=== PATIENT | female | born 1955 | race Caucasian/White ===

== ENCOUNTER 2021-01-27 10:56 | Outpatient (REF) | payer OTHER, SELFPAY ==
--- NOTE | ~2021-01-27 | MM_ITS ---
EXAMINATION: MM SCREENING DIGITAL BREAST TOMOSYNTHESIS, BILATERAL CLINICAL INFORMATION: Screening. Asymptomatic. The lifetime risk of breast cancer based on the Tyrer-Cuzick Model is 5%. COMPARISON: Mammography: 08/14/2019, 07/21/2018, 05/20/2017 TECHNIQUE: Digital breast tomosynthesis is performed in both the craniocaudal and mediolateral oblique views along with computer-aided detection (CAD). Synthesized 2D images are generated from the tomosynthesis. FINDINGS: There are scattered areas of fibroglandular density (ACR BI-RADS breast composition Category b). There are no significant masses, abnormal calcifications, or other abnormalities. Parenchymal pattern is similar to prior studies. Skin contours are smooth. MM/MM tomosynthesis screening BI IMPRESSION: No mammographic evidence of malignancy. ASSESSMENT: BI-RADS 1: Negative RECOMMENDATION: Routine annual mammography screening. This patient's information was entered into a reminder system with a target due date for their next mammogram.
== END 2021-01-27 10:57 | disposition home or self-care (01) ==
LOC: HO.MAMMO 10:56
PROVIDERS: Visit Provider Internal Medicine
DX: Z12.31 Encounter for screening mammogram for malignant neoplasm of breast (principal)
CPT/HCPCS: 77063; 77067

== ENCOUNTER 2022-02-06 12:01 | Outpatient (REF) | payer OTHER, SELFPAY ==
--- NOTE | ~2022-02-06 | MM_ITS ---
EXAMINATION: MM SCREENING DIGITAL BREAST TOMOSYNTHESIS, BILATERAL CLINICAL INFORMATION: Screening. Asymptomatic. The lifetime risk of breast cancer based on the Tyrer-Cuzick Model is 3.5%. COMPARISON: Mammography: January 27, 2021 and studies dating back to October 03, 2012 TECHNIQUE: Digital breast tomosynthesis is performed in both the craniocaudal and mediolateral oblique views along with computer-aided detection (CAD). Synthesized 2D images are generated from the tomosynthesis. FINDINGS: The breasts are heterogeneously dense, which may obscure small masses (ACR BI-RADS breast composition Category c). There are no significant masses, abnormal calcifications, or other abnormalities. MM/MM tomosynthesis screening BI IMPRESSION: There are no significant changes from prior study. ASSESSMENT: BI-RADS 1: Negative RECOMMENDATION: Routine annual mammography screening. This patient's information was entered into a reminder system with a target due date for their next mammogram.
== END 2022-02-06 12:02 | disposition home or self-care (01) ==
LOC: HO.MAMMO 12:01
PROVIDERS: PCP Internal Medicine; Visit Provider Internal Medicine
DX: Z12.31 Encounter for screening mammogram for malignant neoplasm of breast (principal)
CPT/HCPCS: 77063; 77067

== ENCOUNTER 2022-03-27 10:50 | Outpatient (REF) | payer OTHER, SELFPAY ==
--- NOTE | ~2022-03-27 | MM_ITS ---
EXAMINATION: BONE DENSITOMETRY CLINICAL INDICATION: Osteoporosis. COMPARISON: Previous BD dated 12/27/2019 and baseline BD dated 07/11/2008. TECHNIQUE: Using a [employer] DXA System (software version: 13.1) manufactured by [employer], dual-energy x-ray absorptiometry was performed of the lumbar spine and left hip. The images are of good technical quality. Summary results are attached. FINDINGS: AP SPINE L1-L4: Current: BMD 1.022 g/cm2, Z-score 0.3, T-score -1.3, osteopenia, 4.4% decrease from previous, 7.0% decrease from baseline (<5% change is not significant). Prior: BMD 1.069 g/cm2. Baseline: BMD 1.099 g/cm2. LEFT FEMUR, NECK: Current: BMD 0.750 g/cm2, Z-score -0.5, T-score -2.1, osteopenia. Prior: BMD 0.820 g/cm2. Baseline: BMD 0.850 g/cm2. LEFT FEMUR, TOTAL: Current: BMD 0.926 g/cm2, Z-score 0.6, T-score -0.6, normal, 5.0% decrease from previous, 9.6% decrease from baseline (<5% change is not significant). Prior: BMD 0.975 g/cm2. Baseline: BMD 1.024 g/cm2. IDENTIFIED RISK FACTORS: Menopause. HISTORY OF FRACTURE: None listed. MEDICATIONS: Calcium supplements or multivitamin, vitamin D. MM/XR DEXA axial skeleton IMPRESSION: 1. DIAGNOSIS: Osteopenia based on the lowest T-score value of -2.1 in the femoral neck applying World Health Organization criteria. 2. 10-YEAR FRACTURE RISK PREDICTION, FRAX: Major osteoporotic fracture (clinical spine, forearm, hip or shoulder) 6.2%. Hip fracture 1.0%. 3. Treatment Recommendations: NOF guidelines recommend consideration for treatment in postmenopausal women and men age 50 and older presenting with the following: -A hip or vertebral (clinical or morphometric) fracture. -T-score less than or equal to -2.5 at the femoral neck or spine after appropriate evaluation to exclude secondary causes. -Low bone mass at the hip or spine and a 10-year fracture probability by FRAX of greater than or equal to 3% for hip fracture or greater than or equal to 20% for major osteoporotic fracture based on the [place] adapted WHO algorithm. 4. Other Recommendations: All treatment decisions require clinical judgment and consideration of individual patient factors, including patient preferences, comorbidities, previous drug use, risk factors not captured in the FRAX model (e.g. frailty, falls, vitamin D deficiency, increased bone turnover, interval significant decline in bone density) and possible under or overestimation of fracture risk by FRAX. Additional medical evaluation for secondary cause of low bone mineral density may be appropriate. FUTURE SCAN RECOMMENDATION: People with diagnosed cases of osteoporosis or at high risk for fracture should have regular bone mineral density tests. For patients eligible for Medicare, routine testing is allowed once every 2 years. The testing frequency can be increased to one year for patients who have rapidly progressing disease, those who are receiving or discontinuing medical therapy to restore bone mass, or have additional risk factors.
== END 2022-03-27 10:51 | disposition home or self-care (01) ==
LOC: HO.MAMMO 10:50
PROVIDERS: PCP Internal Medicine; Visit Provider Advanced Practice Midwife
DX: N95.1 Menopausal and female climacteric states (principal)
CPT/HCPCS: 77080

== ENCOUNTER 2023-03-03 10:38 | Outpatient (REF) | payer OTHER, SELFPAY ==
--- NOTE | ~2023-03-03 | MM_ITS ---
EXAMINATION: MM SCREENING DIGITAL BREAST TOMOSYNTHESIS, BILATERAL CLINICAL INFORMATION: Screening. Asymptomatic. The lifetime risk of breast cancer based on the Tyrer-Cuzick Model is 4%. COMPARISON: Mammography: 02/06/2022, 01/27/2021, 08/14/2019 TECHNIQUE: Digital breast tomosynthesis is performed in both the craniocaudal and mediolateral oblique views along with computer-aided detection (CAD). Synthesized 2D images are generated from the tomosynthesis. FINDINGS: There are scattered areas of fibroglandular density (ACR BI-RADS breast composition Category b). Breast tissue composition borders on heterogeneously dense in the central anterior breasts. There are no significant masses, abnormal calcifications, or other abnormalities. Parenchymal pattern is similar to prior studies. There is no developing density or architectural abnormality. The axilla and skin contours are unremarkable. No significant changes. MM/MM tomosynthesis screening BI IMPRESSION: No mammographic evidence of malignancy. ASSESSMENT: BI-RADS 1: Negative RECOMMENDATION: Routine annual mammography screening. This patient's information was entered into a reminder system with a target due date for their next mammogram.
== END 2023-03-03 10:39 | disposition home or self-care (01) ==
LOC: HO.MAMMO 10:38
PROVIDERS: PCP Internal Medicine; Visit Provider Internal Medicine
DX: Z12.31 Encounter for screening mammogram for malignant neoplasm of breast (principal)
CPT/HCPCS: 77063; 77067

== ENCOUNTER 2023-07-05 19:29 | Outpatient (REF) | payer OTHER, SELFPAY ==
[2023-07-08 04:13] LABS: HPV mRNA E6/E7 rflx Not Detected (Not Detected)
== END 2023-07-05 19:30 | disposition home or self-care (01) ==
LOC: HO.HHCLNP 19:29
PROVIDERS: Visit Provider Advanced Practice Midwife
DX: Z12.4 Encounter for screening for malignant neoplasm of cervix (principal); Z11.51 Encounter for screening for human papillomavirus (HPV)
CPT/HCPCS: 87624; 88142

== ENCOUNTER 2023-09-21 09:02 | Outpatient (REF) | payer OTHER, SELFPAY ==
[2023-09-21 11:14] LABS: MANUAL DIFF FLAG NO
[2023-09-21 11:22] LABS: Basophils Percent Auto 0.1 % (0-2); Eosinophils Absolute Auto 0.1 X10*3/uL (0.0-0.4); Eosinophils Percent Auto 1.5 % (0-4); Hematocrit 37.8 % (37.0-47.0); Hemoglobin 12.1 g/dl (12.0-16.0); Imm Gran Abs Auto 0.02 X10*3/uL (0.00-0.03); Imm Gran Pct Auto 0.3 % (0.0-0.4); Lymphocytes Absolute Auto 1.8 X10*3/uL (1.2-4.9); Lymphocytes Percent Auto 24.5 % (20-40); Mean Corpuscular Hemoglobin 27.3 pg (27.0-33.0); Mean Corpuscular Volume 85.3 fL (80.0-98.0); Mean Platelet Volume 9.4 fL (9.4-12.3); Monocytes Absolute Auto 0.7 X10*3/uL (0.1-1.2); Monocytes Percent Auto 9.1 % (2-11); Neutrophils Absolute Auto 4.7 x10*3/uL (2.0-8.3); Neutrophils Percent Auto 64.5 % (45-73); Platelet Count 244 X10*3/uL (160-400); Red Blood Count 4.43 X10*6/uL (4.20-5.50); Red Cell Distribution Width 13.8 % (11.0-16.0); White Blood Count 7.2 X10*3/uL (4.8-10.8)
[2023-09-21 11:33] LABS: Estimated Average Glucose 108 mg/dL; Hemoglobin A1c % 5.4 % (<6.0)
[2023-09-21 11:54] LABS: Anion Gap 13 (12-20); Blood Urea Nitrogen 9 mg/dL (9-16); Calcium 10.4 mg/dL (8.4-10.2); Carbon Dioxide 30 mmol/L (22-29); Chloride 103 mmol/L (96-108); Cholesterol 198 mg/dL (<200); Estimated Glomerular Filt Rate > 60; Glucose Random 102 mg/dL (60-115); HDL Cholesterol 49 mg/dL (>40); LDL Cholesterol Calculated 117 mg/dL (<100); Potassium 3.6 mmol/L (3.3-5.1); Sodium 142 mmol/L (135-145); TSH reflex Free T4 1.22 uIU/mL (0.32-4.0); Triglycerides 163 mg/dL (<150)
== END 2023-09-21 09:03 | disposition home or self-care (01) ==
LOC: HO.HHCL 09:02
PROVIDERS: Visit Provider Internal Medicine
DX: E55.9 Vitamin D deficiency, unspecified (principal); I10 Essential (primary) hypertension; E78.5 Hyperlipidemia, unspecified; D63.8 Anemia in other chronic diseases classified elsewhere; M25.50 Pain in unspecified joint
CPT/HCPCS: 36415; 80048; 80061; 82306; 83036; 84443; 85025

== ENCOUNTER 2024-03-08 10:12 | Outpatient (REF) | payer OTHER, SELFPAY | END 2024-03-08 10:13 | disposition home or self-care (01) | LOC: HO.MAMMO 10:12 | PROVIDERS: PCP Internal Medicine; Visit Provider Internal Medicine | DX: Z12.31 Encounter for screening mammogram for malignant neoplasm of breast (principal) | CPT/HCPCS: 77063; 77067 ==

== ENCOUNTER → 2024-03-08 10:30 | Outpatient (BNV) | payer OTHER, SELFPAY | PROVIDERS: PCP Internal Medicine; Visit Provider Radiology Diagnostic Radiology | DX: Z12.31 Encounter for screening mammogram for malignant neoplasm of breast (principal) | CPT/HCPCS: 77063; 77067 ==

== ENCOUNTER 2024-07-27 11:16 | Outpatient (REF) | payer OTHER, SELFPAY ==
--- NOTE | ~2024-07-27 | MM_ITS ---
EXAMINATION: BONE DENSITOMETRY CLINICAL INDICATION: Menopause. COMPARISON: Previous BD dated 03/27/2022 and baseline BD dated 07/11/2008. TECHNIQUE: Using a [employer] DXA System (software version: 13.1) manufactured by [employer], dual-energy x-ray absorptiometry was performed of the lumbar spine and left hip. The images are of good technical quality. Summary results are attached. FINDINGS: LEFT FEMUR, NECK: Current: BMD 0.778 g/cm2, Z-score -0.2, T-score -1.9, osteopenia. Prior: BMD 0.750 g/cm2. Baseline: BMD 0.850 g/cm2. LEFT FEMUR, TOTAL: Current: BMD 0.945 g/cm2, Z-score 0.9, T-score -0.5, normal, 2.1% increase from previous, 7.7% decrease from baseline (<5% change is not significant). Prior: BMD 0.926 g/cm2. Baseline: BMD 1.024 g/cm2. AP SPINE L1-L4: Current: BMD 1.004 g/cm2, Z-score 0.2, T-score -1.5, osteopenia, 1.8% decrease from previous, 8.6% decrease from baseline (<5% change is not significant). Prior: BMD 1.022 g/cm2. Baseline: BMD 1.099 g/cm2. IDENTIFIED RISK FACTORS: Menopause, thiazide. HISTORY OF FRACTURE: None listed. MEDICATIONS: Vitamin D. MM/XR DEXA axial skeleton IMPRESSION: 1. DIAGNOSIS: Osteopenia based on the lowest T-score value of -1.9 in the femoral neck applying World Health Organization criteria. 2. 10-YEAR FRACTURE RISK PREDICTION, FRAX: Major osteoporotic fracture (clinical spine, forearm, hip or shoulder) 6.0%. Hip fracture 1.7%. 3. Treatment Recommendations: NOF guidelines recommend consideration for treatment in postmenopausal women and men age 50 and older presenting with the following: -A hip or vertebral (clinical or morphometric) fracture. -T-score less than or equal to -2.5 at the femoral neck or spine after appropriate evaluation to exclude secondary causes. -Low bone mass at the hip or spine and a 10-year fracture probability by FRAX of greater than or equal to 3% for hip fracture or greater than or equal to 20% for major osteoporotic fracture based on the [place] adapted WHO algorithm. 4. Other Recommendations: All treatment decisions require clinical judgment and consideration of individual patient factors, including patient preferences, comorbidities, previous drug use, risk factors not captured in the FRAX model (e.g. frailty, falls, vitamin D deficiency, increased bone turnover, interval significant decline in bone density) and possible under or overestimation of fracture risk by FRAX. Additional medical evaluation for secondary cause of low bone mineral density may be appropriate. FUTURE SCAN RECOMMENDATION: People with diagnosed cases of osteoporosis or at high risk for fracture should have regular bone mineral density tests. For patients eligible for Medicare, routine testing is allowed once every 2 years. The testing frequency can be increased to one year for patients who have rapidly progressing disease, those who are receiving or discontinuing medical therapy to restore bone mass, or have additional risk factors. Electronically signed by: Yuniel Medel MD 08/02/2024 11:55 AM EDT RP
== END 2024-07-27 11:17 | disposition home or self-care (01) ==
LOC: HO.MAMMO 11:16
PROVIDERS: PCP Internal Medicine; Visit Provider Advanced Practice Midwife
DX: Z13.820 Encounter for screening for osteoporosis (principal); Z78.0 Asymptomatic menopausal state
CPT/HCPCS: 77080

== ENCOUNTER 2025-01-09 09:17 | Outpatient (REF) | payer OTHER, SELFPAY ==
[2025-01-09 11:02] LABS: MANUAL DIFF FLAG NO
[2025-01-09 11:17] LABS: Basophils Percent Auto 0.3 % (0-2); Eosinophils Absolute Auto 0.1 X10*3/uL (0.0-0.4); Hematocrit 39.4 % (37.0-47.0); Hemoglobin 12.8 g/dl (12.0-16.0); Imm Gran Abs Auto 0.02 X10*3/uL (0.00-0.03); Imm Gran Pct Auto 0.3 % (0.0-0.4); Lymphocytes Absolute Auto 1.9 X10*3/uL (1.2-4.9); Mean Corpuscular HGB Conc 32.5 g/dl (31.0-35.0); Mean Corpuscular Hemoglobin 28.1 pg (27.0-33.0); Mean Corpuscular Volume 86.6 fL (80.0-98.0); Mean Platelet Volume 9.6 fL (9.4-12.3); Monocytes Absolute Auto 0.6 X10*3/uL (0.1-1.2); Neutrophils Absolute Auto 4.6 x10*3/uL (2.0-8.3); Neutrophils Percent Auto 64.4 % (45-73); Platelet Count 241 X10*3/uL (160-400); Red Blood Count 4.55 X10*6/uL (4.20-5.50); Red Cell Distribution Width 13.2 % (11.0-16.0); White Blood Count 7.1 X10*3/uL (4.8-10.8)
[2025-01-09 11:49] LABS: Estimated Average Glucose 120 mg/dL; Hemoglobin A1C 150.9413 umol/L; Hemoglobin A1c % 5.8 % (<6.0)
[2025-01-09 12:15] LABS: Alanine Aminotransferase 21 U/L (0-31); Albumin Level 4.7 g/dL (3.5-5.0); Alkaline Phosphatase 101 U/L (39-117); Anion Gap 18 (12-20); Aspartate Amino Transferase 30 U/L (5-31); Bilirubin Total 0.5 mg/dL (0.0-1.0); Blood Urea Nitrogen 13 mg/dL (9-16); Carbon Dioxide 27 mmol/L (22-29); Chloride 103 mmol/L (96-108); Cholesterol 132 mg/dL (<200); Estimated Glomerular Filt Rate > 60; Glucose Random 102 mg/dL (60-115); HDL Cholesterol 56 mg/dL (>40); LDL Cholesterol Calculated 54 mg/dL (<100); Potassium 3.5 mmol/L (3.3-5.1); Sodium 144 mmol/L (135-145); TSH reflex Free T4 1.44 uIU/mL (0.32-4.0); Total Protein 8.3 g/dL (6.5-8.0); Triglycerides 113 mg/dL (<150)
[2025-01-09 13:39] LABS: Reflex LDLD? No
== END 2025-01-09 09:18 | disposition home or self-care (01) ==
LOC: HO.HHCL 09:17
PROVIDERS: Visit Provider Internal Medicine
DX: I10 Essential (primary) hypertension (principal); Z13.1 Encounter for screening for diabetes mellitus
CPT/HCPCS: 36415; 80053; 80061; 83036; 84443; 85025

== ENCOUNTER 2025-03-14 10:20 | Outpatient (REF) | payer OTHER, SELFPAY ==
--- NOTE | ~2025-03-14 | MM_ITS ---
EXAMINATION: MM SCREENING DIGITAL BREAST TOMOSYNTHESIS, BILATERAL CLINICAL INFORMATION: Screening. Asymptomatic. New left lesion marked with mole marker noticed a few days ago in the shower. COMPARISON: Mammography: Comparison is made with available priors TECHNIQUE: Digital breast mammography with tomosynthesis is performed in both the craniocaudal and mediolateral oblique views along with computer-aided detection (CAD). FINDINGS: The breasts are heterogeneously dense, which may obscure small masses (ACR BI-RADS breast composition Category c). Left: Mole marker in the lower inner left breast from a new lesion the patient noticed. No suspicious masses calcifications or other abnormal findings. Right: There are no significant masses, abnormal calcifications, or other abnormalities. MM/MM tomosynthesis screening BI IMPRESSION: Additional imaging is recommended ASSESSMENT: BI-RADS BI-RADS 0 - Incomplete: Needs additional Imaging. RECOMMENDATION: 1. Additional views of the left breast ultrasound. 2. Radiology department staff will contact the patient for additional imaging. Additional Imaging required This examination should not preclude the clinical evaluation of a suspicious palpable abnormality. This patient's information was entered into a reminder system with a target due date for their next mammogram. Electronically signed by: Tash Magallon DO 03/16/2025 09:19 AM EDT
--- OUTSIDE RECORDS SUMMARY | 2025-03-14 12:07 | XMS_ITS | Clinical Summary ---
Author Organization [employer] Address [address] [facility] [address] [place] [address] Care Team Providers Care Grave Digger Name Role Phone Viola Jackson MD Primary Care Provide r Allergies No known active allergies Medications carbamide peroxide (Debrox) 6.5 % otic solution 5 drops every 12 (twelve) hours. instill 5 drop by otic route 2 times every day into affected ear(s) 01/21/20 22 Active Diclofenac Sodium 1 % gelIndications:L umbar paraspinal muscle spasm APPLY 1 INCH TOPICALLY IF NEEDED IN THE MORNING AND AT BEDTIME (PAIN). 100 g 12/24/19 23 Active cyclobenzaprine (Flexeril) 10 MG tabletIndication s:Lumbar paraspinal muscle spasm Take 1 tablet (10 mg) by mouth if needed in the morning and at bedtime for muscle spasms for up to 20 days. 30 tablet 12/03/19 24 Active cholecalciferol VITAMIN D (Vitamin D-3) 50 MCG (1999 UT) capsule TAKE 1 CAPSULE BY MOUTH EVERY DAY 90 capsule 1 07/17/20 24 Active LORazepam (Ativan) 0.5 MG tabletIndication s:Anxiety Take 1 tablet (0.5 mg) by mouth every 6 (six) hours if needed for anxiety (take before stressfull situation) for up to 4 doses. 4 tablet 08/22/20 24 Active metoprolol tartrate (Lopressor) 50 MG tabletIndication s:Primary hypertension TAKE 1 TABLET BY MOUTH TWICE A DAY 180 tablet 1 10/25/20 24 Active ezetimibe (Zetia) 10 MG tabletIndication s:Essential hypertension TAKE 1 TABLET BY MOUTH EVERY MORNING 90 tablet 3 11/20/20 24 Active amLODIPine (Norvasc) 5 MG tabletIndication s:Essential hypertension TAKE 1 TABLET BY MOUTH EVERY MORNING 90 tablet 3 11/20/20 24 Active hydroCHLOROthiaz stella (HYDRODiuril) 25 MG tabletIndication s:Essential hypertension TAKE 1 TABLET BY MOUTH EVERY DAY 90 tablet 3 11/20/20 24 Active atorvastatin (Lipitor) 80 MG tablet TAKE 1 TABLET BY MOUTH EVERY MORNING 90 tablet 3 11/20/20 24 Active cholecalciferol (Vitamin D-3) 25 MCG (1000 UT) tabletIndication s:Vitamin D deficiency Take 1 tablet (25 mcg) by mouth Once per day. 60 tablet 2 01/18/20 25 Active hydrocortisone (Anusol-HC) 2.5 % rectal creamIndications :Other hemorrhoids Insert into the rectum 2 times daily. 28 g 1 01/18/20 25 Active citalopram (CeleXA) 10 MG tabletIndication s:Depression with anxiety TAKE 1 TABLET BY MOUTH EVERY MORNING 90 tablet 3 02/20/20 25 Active lisinopril 40 MG tablet TAKE 1 TABLET BY MOUTH EVERY DAY 90 tablet 3 02/20/20 25 Active aspirin (Aspirin Low Dose) 81 MG EC tablet TAKE 1 TABLET BY MOUTH EVERY MORNING 90 tablet 3 02/20/20 25 Active citalopram (CeleXA) 10 MG tabletIndication s:Depression with anxiety TAKE 1 TABLET BY MOUTH EVERY MORNING 90 tablet 3 02/28/20 24 025 Discontinued aspirin (Aspirin Low Dose) 81 MG EC tablet TAKE 1 TABLET BY MOUTH EVERY MORNING 90 tablet 3 02/28/20 24 025 Discontinued lisinopril 40 MG tablet TAKE 1 TABLET BY MOUTH EVERY DAY 90 tablet 3 05/15/20 24 025 Discontinued Active Problems Problem Noted Date Diagnosed Date Class 1 obesity due to exces s calories with serious comorbidity and body mass index (BMI) of 31.0 to 31.9 in adult 01/18/2025 Assessment & Plan (01/18/2025 4:29 PM EST): Extensive counseling about diet and exercise done today Patient was referred to baggage porter head Roger 01/18/2025 Assessment & Plan (01/18/2025 4:29 PM EST): Patient referred to dermatology Other hemorrhoids 01/18/2025 Assessment & Plan (01/18/2025 4:29 PM EST): Hydrocortisone cream prescribed as needed Colon cancer screening 12/03/2023 Mixed stress and urge urinary incontinence 03/26 Depression with anxiety 03/26/2023 Assessment & Plan (01/18/2025 4:29 PM EST): Counseling done Continue with citalopram 10 mg daily Assessment & Plan (12/31/2023 2:08 PM EST): Continue with therapist C/w citalopram 10mg daily Assessment & Plan (12/08/2023 9:46 AM EST): Stable c/w citalopram Assessment & Plan (03/31/2023 4:07 PM EDT): Continue with therapist medication refilled today Anxiety 10/27/2022 Excessive cerumen in ear canal 10/27/2022 Major depressive disorder 10/27/2022 Assessment & Plan (06/30/2024 12:15 PM EDT): C/w current medications, she declines for now therapist Multiple joint pain 10/27/2022 Tinnitus 10/27/2022 Vitamin D deficiency 10/27/2022 Lumbar paraspinal muscle spasm 10/27/2022 Assessment & Plan (12/08/2023 9:46 AM EST): Apply heat on affected area Assessment & Plan (10/27/2022 6:35 PM EST): Recommended to apply warm compresses to affected area Use tylenol + Cyclobenzaprine bid x 5d then prn. Use diclofenac gel bid x 5d Recommended to come for acupuncture clinic, info given to patient Lumbar spine exercises info provided to patient. Reconsult prn if sxs do not improve within 2w Coronary atherosclerosis 08/23/2018 Anemia of chronic disease 10/18/2017 Essential hypertension 10/18/2017 Assessment & Plan (01/18/2025 4:28 PM EST): Blood pressure seems to be under control I advised low-sodium diet and continue with same medication regimen Assessment & Plan (06/30/2024 12:14 PM EDT): Maintenance: BMP: ordered today Lipid Panel: ordered ASCVD Risk: Calculate pending updated labs - Aerobic exercise to reduce BP. Initial goal of 30 min walk 3-5x/week. Increase as tolerated. - low-sodium diet (goal: <2g/day) and heart healthy diet such as DASH to reduce BP and prevent ASCVD. - Home BP monitoring 1-2 x day with goal of <140/90. - Seek immediate medical attention for chest pain, palpitations, SOB, syncope, or sudden changes in mental status. - Do not change or discontinue current prescriptions without first consulting health care provider Assessment & Plan (12/31/2023 2:08 PM EST): Controlled c/w same interventions Assessment & Plan (12/08/2023 9:46 AM EST): Maintenance: BMP: up to date Lipid Panel: up date ASCVD Risk: on atorvastatin 80mg I added today zetia - Aerobic exercise to reduce BP. Initial goal of 30 min walk 3-5x/week. Increase as tolerated. - low-sodium diet (goal: <2g/day) and heart healthy diet such as DASH to reduce BP and prevent ASCVD. - Home BP monitoring 1-2 x day with goal of <140/90. - Seek immediate medical attention for chest pain, palpitations, SOB, syncope, or sudden changes in mental status. - Do not change or discontinue current prescriptions without first consulting health care provider Assessment & Plan (03/31/2023 4:07 PM EDT): Maintenance: BMP: ordered today Lipid Panel: ordered today ASCVD Risk: already on high intensity statin - Aerobic exercise to reduce BP. Initial goal of 30 min walk 3-5x/week. Increase as tolerated. - low-sodium diet (goal: <2g/day) and heart healthy diet such as DASH to reduce BP and prevent ASCVD. - Home BP monitoring 1-2 x day with goal of <140/90. - Seek immediate medical attention for chest pain, palpitations, SOB, syncope, or sudden changes in mental status. - Do not change or discontinue current prescriptions without first consulting health care provider Assessment & Plan (10/27/2022 6:36 PM EST): Uncontrolled today, likely related to acute pain. Treat pain, check BP at home three times per week and fu w RN if BP remains >150/90 after 2w. Continue same meds. Female stress incontinence 10/18/2017 Hyperlipidemia 10/18/2017 Legal blindness 10/18/2017 Osteopenia determined by x-ray 10/18/2017 Status post non-ST elevation myocardial infarcti on (NSTEMI) 10/18/2017 Stented coronary artery 10/18/2017 Encounters Date Type Department Care Team Description 02/20/2025 11:00 AM EDT Nutrition [facility] [address] [place] [address] Class 1 obesity due to excess calories with serious comorbidity and body mass index (BMI) of 31.0 to 31.9 in adult 02/20/2025 Travel 02/18/2025 Refill [facility] [address] [place] [address] Viola Jackson MD Depression with anxiety 01/18/2025 11:00 AM EST Office Visit [facility] [address] [place] [address] Viola Jackson MD Class 1 obesity due to excess calories with serious comorbidity and body mass index (BMI) of 31.0 to 31.9 in adult (Primary Dx); Depression with anxiety; Essential hypertension; Nevus; Vitamin D deficiency; Multiple joint pain; Other hemorrhoids 01/18/2025 Travel 01/18/2025 Telephone [facility] [address] [place], [place] [phone] Viola Jackson MD Cologuabreonna 01/17/2025 Telephone [facility] [address] [place] [phone] Viola Jackson MD from Last 3 Months Immunizations Name Administration Dates Next Due Influenza High-dose Quadriva lent Preservative Free 09/08/2022 Influenza Quadrivalent Adjuvanted 10/15/2023, Influenza injectable quadriv alent IIV4 with preservative 09/01/2019,08/23/2018,09/23/2015 Influenza injectable quadriv alent preservative free 10/09/2020,09/07/2017,08/25/2016 Influenza, IIV3, injectable 09/21/2014, 1 Influenza, Split (incl. aden fied surface antigen) 08/15/2013,09/23/2012 Pneumococcal Conjugate PCV 13 01/20/2022 Pneumococcal Conjugate PCV 20 12/03/2023 TD (adult), 2 Lf tetanus tox oid, preservative free, adsorbed 03/31/2007 Tdap 05/12/2017 Zoster, live 05/12/2017 Family History Medical History Relation Name Comments Other Son murdered 05/2024 Relation Name Status Comments Son Social History Tobacco Use Types Packs/Day Years Used Date Smoking Tobacco: Never Passive Smoke Exposure: Never Smokeless Tobacco: Never Tobacco Cessation:Counseling Given: Not Answered Alcohol Use Standard Drinks/Week Comments Never 0 (1 standard drink = 0.6 oz pur e alcohol) Alcohol Answer Date Recorded Frequency of Alcohol Consumption Not on file 06/30/2024 Average Number of Drinks Not on file 024 Frequency of Binge Drinking Not on file 07/2024 Score 0 06/30/2024 Depression Answer Date Recorded Patient Health Questionnaire-9 Score 0 06/30/2024 Patient Health Questionnaire-9 Score 0 06/30/2024 Last PHQ-9: Questionnaire Data Not on file 0 06/30/2024 Housing Stability Answer Date Recorded What is your housing situation today? I have mel lanier 06/20/[address] you li ve. Do you have problems with any of the following? Pests such as bugs, ants, or mice;Mold 06/20/2024 Food Insecurity Answer Date Recorded Within the past 12 months, y ou worried that your food would run out before you got money to buy more: Never True 06/20/2024 Within the past 12 months,th e food you bought just didn't last and you didn't have enough money to get more: Never True Transportation Answer Date Recorded In the past 12 months, has l ack of transportation kept you from medical appts, meetings, work or from getting things needed for daily living? No 06/20/2024 Utilities Answer Date Recorded In the past 12 months, has t he electric, gas, oil or water company threatened to shut off services in your home? No 06/20/2024 Depression Answer Date Recorded Patient Health Questionnaire-2 Score 0 06/30/2024 Internet Access Answer Date Recorded Internet Access Q1 No 07/24/2024 Internet Access Q2 I do not want or need it 12/2023 Comments No Sex and Gender Information Value Date Recorded Sex Assigned at Female 09/21/2022 10:14 AM EDT Legal Sex Female 10:14 AM EDT Gender Identity Female 09/21/2022 10:14 AM EDT Sexual Orientation Straight 09/21/2022 10 :14 AM EDT Last Filed Vital Signs Vital Sign Reading Time Taken Comments Blood Pressure 121/73 01/18/2025 11:06 AM EST Pulse 64 01/18/2025 11:06 AM EST Temperature 35.7 ??C (96.3 ??F) 01/18/2025 1 1:06 AM EST Respiratory Rate 17 01/18/2025 11:0 6 AM EST Oxygen Saturation 98% 07/05/2024 11: 24 AM EDT Inhaled Oxygen Concentration - - Weight 66.6 kg (146 lb 12.8 oz) 025 11:54 AM EDT Height 147.3 cm (4' 10 ) 02/22/2025 11: 54 AM EDT Body Mass Index 30.68 02/22/2025 11:54 AM EDT Plan of Treatment Upcoming Encounters Date Type Department Care Team (Late st Contact Info) Description 04/18/2025 11:15 AM EDT Office Visit [facility] [address] [place] [address] Viola Jackson MD [address] [place] [address] Health Maintenance Due Date Last Done Comments CT Colonography 1955 Colonoscopy 1955 FIT 1955 FOBT 1955 Sigmoidoscopy 1955 Hepatitis C Screening 1973 RSV Patients and Patients Aged 60 years or older (1 - Risk 60-74 years 1-dose series) 2015 COVID-19 Vaccine ( season) 2024 10/15/2023, 11/07/2022, 11/18/2021, Additional history exists Zoster Vaccines (3 of 3) 12/20/2024 10/25/2024, 04/23 Mammogram 03/08/2025 03/08/2024, 02/20, 03/03/2023, Additional history exists SDOH Screening 06/20/2025 06/20/2024 Alcohol/Substance Use Screening 06/30/2025 06/30/2024 Depression Screening 06/30/2025 06/30/2024, 06/30/20 Colorectal Cancer Screening 09/21/2025 FIT DNA/Cologuard 09/21/2025 09/21/2022 Diabetes: Hemoglobin A1C 01/09/2026 025, 09/21/2023, 04/21/2022, Additional history exists Tobacco Screening 01/18/2026 01/18/2025 DTaP/Tdap/Td Vaccines (2 - Td or Tdap) 05/12/2027 05/12/2017, 03/31/2007 HPV/Cotest 07/05/2028 07/05/2023, 12/21/2019 Pap Smear 07/05/2028 07/05/2023, 12/21/2019 Lipid Panel 01/09/2030 01/09/2025, 08/24, 04/21/2022, Additional history exists Pneumococcal Vaccine: 50+ Years Completed 12/03/2023, 01/20/2022 Influenza Vaccine Completed 10/25/2024, , 09/08/2022, Additional history exists HIB Vaccines Aged Out No longer eligi ble based on patient's age to complete this topic HPV Vaccines Aged Out No longer eligi ble based on patient's age to complete this topic Hepatitis A Vaccines Aged Out No long er eligible based on patient's age to complete this topic Hepatitis B Vaccines Aged Out No long er eligible based on patient's age to complete this topic IPV Vaccines Aged Out No longer eligi ble based on patient's age to complete this topic Meningococcal Vaccine Aged Out No torin ángela eligible based on patient's age to complete this topic RSV under 20 months Aged Out No longe r eligible based on patient's age to complete this topic Rotavirus Vaccines Aged Out No longer eligible based on patient's age to complete this topic Procedures Procedure Name Priority Date/Time Associated Diagnosis Comments HEMOGLOBIN A1C Routine 01/09/2025 9:20 AM EST Essential hypertension TSH W/REFLEX TO FT4 Routine 01/09/2025 9 :20 AM EST Essential hypertension LIPID PANEL WITH REFLEX TO DIRECT LDL Routine 01/09/2025 9:20 AM EST Essential hypertension COMPREHENSIVE METABOLIC PANEL Routine 01/09/2025 9:20 AM EST Essential hypertension CBC WITH AUTO DIFFERENTIAL Routine 01/09/2025 9:20 AM EST Essential hypertension BI MAMMOGRAM SCREENING TOMOSYNTHESIS BILATERAL Routine 03/08/2024 10:30 AM EDT HPV MRNA E6/E7 REFLEX TO HPV 16, 18/45 Routine 07/05/2023 12:00 AM EDT PAP SMEAR Routine 07/05/2023 from Last 3 Months or Most Recently Relevant to Health Maintenance Results * TSH with Reflex to Free T4 (01/09/2025 9:20 AM EST) TSH reflex Free T4 1.44 0.32 - 4.0 uIU/mL [facility] Blood 01/09/2025 9:20 AM EST 01/09/2025 11:00 AM EST us Viola So MD LAB BLOOD ORDERABLES Final Result [facility] [address] [place] [phone] * Lipid Panel with Reflex to Direct LDL (01/09/2025 9:20 AM EST) Triglycerides 113 <150 mg/dL [facility] Comment:Desirable Triglyceri de: less than 150 mg/dLBorderline High Triglyceride 150-199 mg/dLHigh Triglyceride: 200-499 mg/dLVery High Triglyceride: greater than or equal to 5OO mg/dL Cholesterol 132 <200 mg/dL [facility] Comment:Desirable Cholestero l: less than 200 mg/dLBorderline High Cholesterol: 200-239 mg/dLHigh Cholesterol: greater than 239 mg/dL LDL Cholesterol Calculated 54 <100 mg/dL [facility] Comment:Desirable LDL: less than 100 mg/dLNear Optimal/Above Optimal LDL: 110- 129 mg/dLBorderline High LDL: 130-159 mg/dLHigh LDL: 160-189 mg/dLVery High LDL: greater than or equal to 190 mg/dL HDL Cholesterol 56 >40 mg/dL [facility] Comment:Desirable HDL: great er than 40 mg/dL Note: This HDL assay may give artificially low results in patients with liver disease. Blood 01/09/2025 9:20 AM EST 01/09/2025 11:00 AM EST us Viola So MD LAB BLOOD ORDERABLES Final Result [facility] [address] [place] [address] [phone] * CBC auto differential (01/09/2025 9:20 AM EST) White Blood Count 7.1 4.8 - 10.8 X10*3/uL [facility] Red Blood Count 4.55 4.20 - 5.50 X10*6/uL [facility] Hemoglobin 12.8 12.0 - 16.0 g/dl [facility] Hematocrit 39.4 37.0 - 47.0 % [facility] Mean Corpuscular Volume 86.6 80.0 - 98.0 fL [facility] Mean Corpuscular Hemoglobin 28.1 27.0 - 33.0 pg [facility] Mean Corpuscular HGB Conc 32.5 31.0 - 35.0 g/dl [facility] Red Cell Distribution Width 13.2 11.0 - 16.0 % [facility] Platelet Count 241 160 - 400 X10*3/uL [facility] Mean Platelet Volume 9.6 9.4 - 12.3 fL [facility] Neutrophils Percent Auto 64.4 45 - 73 % [facility] Imm Gran Pct Auto 0.3 0.0 - 0.4 % [facility] Lymphocytes Percent Auto 26.0 20 - 40 % [facility] Monocytes Percent Auto 8.0 2 - 11 % [facility] Eosinophils Percent Auto 1.0 0 - 4 % [facility] Basophils Percent Auto 0.3 0 - 2 % [facility] NRBC Pct Auto 0.0 0.0 - 0.2 /100WBC [facility] Neutrophils Absolute Auto 4.6 2.0 - 8.3 x10*3/uL [facility] Imm Gran Abs Auto 0.02 0.00 - 0.03 X10*3/uL [facility] Lymphocytes Absolute Auto 1.9 1.2 - 4.9 X10*3/uL [facility] Monocytes Absolute Auto 0.6 0.1 - 1.2 X10*3/uL [facility] Eosinophils Absolute Auto 0.1 0.0 - 0.4 X10*3/uL [facility] Basophils Absolute Auto 0.0 0.0 - 0.2 X10*3/uL [facility] NRBC Abs Auto 0.000 0.0 - 0.012 X10*3/uL [facility] Blood Venous blood specimen / Unknown 01/09/2025 9:20 AM EST 01/09/2025 11:00 AM EST us Viola So MD LAB BLOOD ORDERABLES Final Result [facility] [address] [place] [phone] * Hemoglobin A1c (01/09/2025 9:20 AM EST) Hemoglobin A1c 5.8 <6.0 % [facility] Comment:Hemoglobin A1C Refer ence Range Adults: 4.8 - 6.0 % Non diabetic: < 6.0 % Goal: < 7.0 %Additional Action Suggested: > 8.0 %Note: Hemoglobin A1c results are invalid for patients with abnormal amounts of HbF. Blood transfusions may impact the HbA1c concentration in the patient sample. Estimated Average Glucose 120 mg/dL [facility] Comment:eAG = Estimated ave rage glucose which is %A1C expressed asaverage glucose, using the formula of the V9F-WaokuduWrfztpi Glucose study (ADAG), Diabetes Care, Vol.31,#8,Jun. 2007 Blood Venous blood specimen / Unknown 01/09/2025 9:20 AM EST 01/09/2025 11:00 AM EST us Viola So MD LAB BLOOD ORDERABLES Final Result [facility] [address] [place] [phone] [phone] * (ABNORMAL) Comprehensive Metabolic Panel (01/09/2025 9:20 AM EST) Sodium 144 135 - 145 mmol/L [facility] Potassium 3.5 3.3 - 5.1 mmol/L [facility] Chloride 103 96 - 108 mmol/L [facility] Carbon Dioxide 27 22 - 29 mmol/L [facility] Anion Gap 18 12 - 20 [facility] Urea Nitrogen (BUN) 13 9 - 16 mg/dL [facility] Creatinine, Serum 0.70 0.5 - 1.4 mg/dL [facility] Estimated Glomerular Filt Rate >60 [facility] Comment:Chronic Kidney Disea se: Estimated GFR < 60 mL/min/1.05a6Gicuud Kidney Disease: Estimated GFR < 15 mL/min/1.73m2 Glucose 102 60 - 115 mg/dL [facility] Calcium 10.0 8.4 - 10.2 mg/dL [facility] Bilirubin, Total 0.5 0.0 - 1.0 mg/dL [facility] Aspartate Amino Transferase 30 5 - 31 U/L [facility] Alanine Aminotransferase 21 0 - 31 U/L [facility] Total Protein 8.3(H) 6.5 - 8.0 g/dL [facility] Albumin Level 4.7 3.5 - 5.0 g/dL [facility] Alkaline Phosphatase 101 39 - 117 U/L [facility] Blood Venous blood specimen / Unknown 01/09/2025 9:20 AM EST 01/09/2025 11:00 AM EST Viola So MD LAB BLOOD ORDERABLES Final Result [facility] [address] [place] [phone] * BI Mammogram Screening Tomosynthesis Bilateral (03/08/2024 10:30 AM EDT) Anatomical Region Laterality Modality Breast Bilateral Mammography 03/08/2024 10:3 0 AM EDT Narrative 04/03/2024 9:12 AM EDT ? [facility] ? [address] ?[place] [address] ? Mammography Report ? Signed ? Patient: Lambert,Alice ?MR#: [id number] ?? 3 ? : 1955 ?Acct:[id number] ? Age/Sex: 68 / F ?ADM Date: 04/17/24 ? Loc: HO.MAMMO ? Attending Dr: Viola So MD ? Ordering Physician: Viola Jackson MD ?Results: ?? 1Negative ? Date of Service: 03/08/24 ?Follow Up: 1 Year From Orig ?? inal Mammogram ? Procedure(s): MM tomosynthesis screening BI ?? Accession Number(s): [id number] ? cc: Viola Jackson MD ? EXAMINATION: ?? MM SCREENING DIGITAL BREAST TOMOSYNTHESIS, BILATERAL ? CLINICAL INFORMATION: ? Screening. Asymptomatic. ? COMPARISON: ?? Mammography: This study is compared with prior exams dating back to ?? 2018. ? TECHNIQUE: ?? Digital breast tomosynthesis is performed in both the craniocaudal and ?? mediolateral oblique views along with computer-aided detection (CAD). ?? Synthesized 2D images are generated from the tomosynthesis. ? FINDINGS: ?? There are scattered areas of fibroglandular density (ACR BI-RADS breast ?? composition Category b). ? There are no significant masses, abnormal calcifications, or other ?? abnormalities. ? MM/MM tomosynthesis screening BI ?? IMPRESSION: ?? No mammographic evidence of malignancy. ? ASSESSMENT: ? BI-RADS BI-RADS 1 - Negative ? RECOMMENDATION: ?? Routine annual mammography screening. ? 1 year F/U ? This examination should not preclude the clinical evaluation of a ?? suspicious palpable abnormality. ? This patient's information was entered into a reminder system with a ?? target due date for their next mammogram. ? Dictated By: ?Khushbu Workman MD ? Signed By: ?<Electronically signed by Khushbu Workman MD in OV> ? 05/13/24 0908 ? DD/DT: 03/08/ 1030 ? TD/TT: ? Rn Hemodialysis Charge: ? Procedure Note Donotuseinterpreter, Image - 04/03/2024 [facility] [address] [place] [address] Mammography Report Signed Patient: Tito Verdin#: [id number] 3 : 6Acct:[id number] Age/Sex: 68 / FADM Date: 03/08/24 Loc: HO.MAMMO Attending Dr: Viola So MD Ordering Physician: Viola Jackson MDResults: 1Negative Date of Service: 03/08/24Follow Up: 1 Year From Orig inal Mammogram Procedure(s): MM tomosynthesis screening BI Accession Number(s): [id number] cc: Viola Jackson MD EXAMINATION: MM SCREENING DIGITAL BREAST TOMOSYNTHESIS, BILATERAL CLINICAL INFORMATION: Screening. Asymptomatic. COMPARISON: Mammography: This study is compared with prior exams dating back to 2019. TECHNIQUE: Digital breast tomosynthesis is performed in both the craniocaudal and mediolateral oblique views along with computer-aided detection (CAD). Synthesized 2D images are generated from the tomosynthesis. FINDINGS: There are scattered areas of fibroglandular density (ACR BI-RADS breast composition Category b). There are no significant masses, abnormal calcifications, or other abnormalities. MM/MM tomosynthesis screening BI IMPRESSION: No mammographic evidence of malignancy. ASSESSMENT: BI-RADS BI-RADS 1 - Negative RECOMMENDATION: Routine annual mammography screening. 1 year F/U This examination should not preclude the clinical evaluation of a suspicious palpable abnormality. This patient's information was entered into a reminder system with a target due date for their next mammogram. Dictated By: Khushbu Workman MD Signed By: <Electronically signed by Khushbu Workman MD in OV> 04/03/24 0908 DD/ 1030 TD/TT: Rn Hemodialysis Charge: us Viola So MD IMG BI PROCEDURES Fin al Result * HPV mRNA E6/E7 w/Reflex to HPV Genotypes 16, 18/45 (07/05/2023 12:00 AM EDT) HPV nRNA E6/E7 Not Detected Not Detected [facility] Comment:Methodology: Transcr iption-Mediated AmplificationThis assay detects E6/E7 viral messenger RNA (mRNA) from 14high-risk HPV types (16,18,31,33,35,39,45,51,52,56,58,59,66,68).Cervical sources are required for HPV testing.If a vaginal source from a patient who has had atotal hysterectomy with removal of cervix wassubmitted, please contact the testing laboratoryfor alternative testing options.For additional information, please refer tohttp://education.Cirro/faq/[email or web address](This link if provided for information/educational purposes only.)THIS TEST WAS PERFORMED AT:[facility] [place] [id number] LOPEZ MD HPV mRNA E6/E7 [facility] HPV 16 RNA [facility] HPV 18/45 RNA [facility] 07/05/2023 07/06/2023 10: 20 AM EDT Laci Hemphill [facility] CYTOLOGY ORDERABLES F inal Result [facility] [address] [place] [phone] * Pap Smear (07/05/2023) 07/05/2023 07/06/2023 10: 20 AM EDT Narrative [facility] - 07/20/2023 3:36 PM EDT ----- ------- Name: LambertAlice ?Age/Sex: 67/F ? : 1955 Unit#: [id number] ?? Attend Dr: LACI HEMPHILL CNM ?Re07/05/23 ?Status: DEP REF ? Location: HO.[facility]CLNP ? Disch: ? ----- ------- SPEC : [id number] ?RECD: 07/06/23-0 ? STATUS: ??SOUT ? REQ NUM: [id number] ? SAMEER: 07/05/23- ? SUBM DR: LACI HEMPHILL CNM ? ENTERED: ??07/06/23-1054 ?SP TYPE: Pap Smr ?OTHR DR: ? ORDERED: ??Pap Smear ? Interpretation ?? Satisfactory for evaluation. ?? Negative for intraepithelial lesion or malignancy. ?HPV mRNA E6/E7: ?NOT DETECTED ? This assay detects E6/E7 viral messenger RNA (mRNA) from 14 high-risk HPV types (16, 18, ?? 31, 33, 35, 39, 45, 51, 52, 56, 58, 59, 66, 68) ?? HPV testing performed by [facility], [place], [place]. ??See reference laboratory ?? pion of the EMR for entire report. ?Clinical Information LMP:Unknown date Previous PAP test:2019, ASC HPV neg ? Material Received ?? ThinPrep-Vaginal/Cervical ----- ------- Signed (signature on file) Rina Hester MD 07/20/23 1536 ? ----- ------- ? END OF REPORT ? us Laci Hemphill [facility] CYTOLOGY ORDERABLES F inal Result [facility] [address] [place] [phone] from Last 3 Months or Most Recently Relevant to Health Maintenance Insurance [facility] Care Teams Grave Digger Relationship Specialty Start Date End Date Viola Jackson MD [address] [place] [phone] PCP - General Family Medicine 08/10/18
--- OUTSIDE RECORDS SUMMARY | 2025-03-14 12:07 | XMS_ITS | Encounter Summary ---
Author Organization [employer] Address [address] [place] [address] [address] [place] [address] Care Team Providers Care Civil Engineer In Training Name Role Phone Viola aJckson MD Primary Care Provide r Encounter Details Date Type Department Care Team (Latest Contact Info) Description 05/23/2021 Abstract [facility] CONVERSIONS Dental, Provider, DDS Social History Tobacco Use Types Packs/Day Years Used Date Smoking Tobacco: Never Assessed Comments Unknown Sex and Gender Information Value Date Recorded Sex Assigned at Female 09/21/2022 10:14 AM EDT Legal Sex Female 10:14 AM EDT Gender Identity Female 09/21/2022 10:14 AM EDT Sexual Orientation Straight 09/21/2022 10 :14 AM EDT documented as of this encounter Plan of Treatment Upcoming Encounters Date Type Department Care Team (Late st Contact Info) Description 04/18/2025 11:15 AM EDT Office Visit [facility] [address] [place] [phone] Viola Jackson MD [address] [place] [address] documented as of this encounter Visit Diagnoses Not on filedocumented in this encounter Care Teams Civil Engineer In Training Relationship Specialty Start Date End Date Viola Jackson MD [address] [place] [phone] PCP - General Family Medicine 08/10/18 documented as of this encounter
== END 2025-03-14 10:21 | disposition home or self-care (01) ==
LOC: HO.MAMMO 10:20
PROVIDERS: PCP Internal Medicine; Visit Provider Internal Medicine
DX: Z12.31 Encounter for screening mammogram for malignant neoplasm of breast (principal)
CPT/HCPCS: 77063; 77067

== ENCOUNTER → 2025-03-14 10:30 | Outpatient (BNV) | payer OTHER, SELFPAY | PROVIDERS: PCP Internal Medicine; Visit Provider Internal Medicine | DX: Z12.31 Encounter for screening mammogram for malignant neoplasm of breast (principal) | CPT/HCPCS: 77063; 77067 ==

== ENCOUNTER 2025-03-29 10:55 | Outpatient (REF) | payer OTHER, SELFPAY ==
--- NOTE | ~2025-03-29 | US_ITS ---
EXAMINATION: US DIAGNOSTIC ULTRASOUND BREAST, LEFT CLINICAL INFORMATION: Left skin lesion lower inner quadrant.. COMPARISON: Comparison is made with relevant prior imaging. TECHNIQUE: Ultrasound of the breast is performed with real-time albarado scale imaging and color Doppler. FINDINGS: Targeted color Doppler ultrasound scanning over the patient's new left skin lesion 7:00 6 cm from nipple demonstrates a hypoechoic intradermal sebaceous cyst/epidermal inclusion cyst measuring 5 x 5 x 1 mm. Results are discussed with the patient at time of visit. US/US breast LT limited mamm only IMPRESSION: Intradermal Sebaceous cyst/epidermal inclusion cyst. Benign. Recommend clinical follow-up. ASSESSMENT: BI-RADS 2: Benign RECOMMENDATION: 1. Patient should be managed based on the clinical impression. Decision to proceed with biopsy should be based on clinical grounds and degree of clinical concern. 2. Otherwise, routine annual screening mammography. This patient's information was entered into a reminder system with a target due date for their next mammogram. Electronically signed by: Tash Magallon DO 03/29/2025 12:10 PM EDT
--- OUTSIDE RECORDS SUMMARY | 2025-03-29 12:28 | XMS_ITS | Encounter Summary ---
Author Organization [employer] Address [address] [facility] [address] [place] [address] Care Team Providers Care Car Builder Name Role Phone Viola Jackson MD Primary Care Provide r Reason for Visit * Reason Onset Date Comments Appointment Request 03/19/2025 Encounter Details Date Type Department Care Team ([facility] Contact Info) Description 03/19/2025 Telephone [facility] [address] [place] [address] [phone] Viola Jackson MD [address] [place] [address] Appointment Request Social History Tobacco Use Types Packs/Day Years Used Date Smoking Tobacco: Never Passive Smoke Exposure: Never Smokeless Tobacco: Never Alcohol Use Standard Drinks/Week Comments Never 0 [...] AM EDT documented as of this encounter Miscellaneous Notes * Telephone Encounter - Shagufta Martinez - 03/19/2025 12:05 PM EDT Tc from pt stating she was not contacted for derm appointment scheduled for May. Pt needs appointment to be in the morning. Contact pt at [phone] (algerian) documented in this encounter Plan of Treatment Upcoming Encounters Date Type Department Care Team (Late st Contact Info) Description 04/18/2025 11:15 AM EDT Office Visit [facility] [address] [place] [phone] Viola Jackson MD [address] [place] [address] documented as of this encounter Visit Diagnoses Not on filedocumented in this encounter Additional Health Concerns Assessment Noted Time PHQ-9 Depression Total Score: 0 06/30/20 24 11:20 AM EDT documented as of this encounter Care Teams Car Builder Relationship Specialty Start Date End Date Viola Jackson MD [address] [place] [address] PCP - General Family Medicine 08/10/18 documented as of this encounter
--- OUTSIDE RECORDS SUMMARY | 2025-03-29 12:28 | XMS_ITS | Clinical Summary ---
Author Organization [employer] Address [address] [facility] [address] [place] [address] Care Team Providers Care Crime Data Specialist Name Role Phone Viola Jackson MD Primary Care Provide r Allergies No known active allergies Medications carbamide peroxide (Debrox) 6.5 % otic solution 5 drops every 12 (twelve) hours. instill 5 drop by otic route 2 times every day into affected ear(s) 2 Active Diclofenac Sodium 1 % gelIndications:Keren mbar paraspinal muscle spasm APPLY 1 INCH TOPICALLY IF NEEDED IN THE MORNING AND AT BEDTIME (PAIN). 100 g 3 Active cyclobenzaprine (Flexeril) 10 MG tabletIndications :Lumbar paraspinal muscle spasm Take 1 tablet (10 mg) by mouth if needed in the morning and at bedtime for muscle spasms for up to 20 days. 30 tablet 4 Active cholecalciferol VITAMIN D (Vitamin D-3) 50 MCG (1999 UT) capsule TAKE 1 CAPSULE BY MOUTH EVERY DAY 90 capsule 1 4 Active LORazepam (Ativan) 0.5 MG tabletIndications :Anxiety Take 1 tablet (0.5 mg) by mouth every 6 (six) hours if needed for anxiety (take before stressfull situation) for up to 4 doses. 4 tablet 4 Active metoprolol tartrate (Lopressor) 50 MG tabletIndications :Primary hypertension TAKE 1 TABLET BY MOUTH TWICE A DAY 180 tablet 1 4 Active ezetimibe (Zetia) 10 MG tabletIndications :Essential hypertension TAKE 1 TABLET BY MOUTH EVERY MORNING 90 tablet 3 4 Active amLODIPine (Norvasc) 5 MG tabletIndications :Essential hypertension TAKE 1 TABLET BY MOUTH EVERY MORNING 90 tablet 3 4 Active hydroCHLOROthiazi de (HYDRODiuril) 25 MG tabletIndications :Essential hypertension TAKE 1 TABLET BY MOUTH EVERY DAY 90 tablet 3 4 Active atorvastatin (Lipitor) 80 MG tablet TAKE 1 TABLET BY MOUTH EVERY MORNING 90 tablet 3 4 Active cholecalciferol (Vitamin D-3) 25 MCG (1000 UT) tabletIndications :Vitamin D deficiency Take 1 tablet (25 mcg) by mouth Once per day. 60 tablet 2 5 Active hydrocortisone (Anusol-HC) 2.5 % rectal creamIndications: Other hemorrhoids Insert into the rectum 2 times daily. 28 g 1 5 Active citalopram (CeleXA) 10 MG tabletIndications :Depression with anxiety TAKE 1 TABLET BY MOUTH EVERY MORNING 90 tablet 3 5 Active lisinopril 40 MG tablet TAKE 1 TABLET BY MOUTH EVERY DAY 90 tablet 3 5 Active aspirin (Aspirin Low Dose) 81 MG EC tablet TAKE 1 TABLET BY MOUTH EVERY MORNING 90 tablet 3 5 Active Active Problems Problem Noted Date Diagnosed Date Class 1 obesity due to exces s calories with serious comorbidity and body mass index (BMI) of 31.0 to 31.9 in adult 01/18/2025 Assessment & Plan (01/18/2025 4:29 PM EST): Extensive counseling about diet and exercise done today Patient was referred to finance intern Nevus 01/18/2025 Assessment & Plan (01/18/2025 4:29 PM [...] Encounters Date Type Department Care Team Description 03/19/2025 Telephone [facility] [place] [phone] Viola Jackson MD Appointment Request 03/14/2025 Orders Only [facility] [place] [phone] Viola Jackson MD 02/20/2025 11:00 AM EDT Nutrition [facility]TRITION Jasiel [place] [phone] Class 1 obesity due to excess calories with serious comorbidity and body mass index (BMI) of 31.0 to 31.9 in adult 02/20/2025 Travel 02/18/2025 Refill [facility] [place] [phone] Viola Jackson MD Depression with anxiety 01/18/2025 11:00 AM EST [facility] [place] [phone] Viola Jackson MD Class 1 obesity due to excess calories with serious comorbidity and body mass index (BMI) of 31.0 to 31.9 in adult (Primary Dx); Depression with anxiety; Essential hypertension; Nevus; Vitamin D deficiency; Multiple joint pain; Other hemorrhoids 01/18/2025 Travel 01/18/2025 Telephone [facility] [place] [phone] Viola Jackson MD Cologuard 01/17/2025 Telephone [facility] Jasiel Lemos [place] [phone] Viola Jackson MD from Last 3 Months [...] your housing situation today? I have mel yannick 06/20/[address] you li [...] Description 04/18/2025 11:15 AM EDT Office Visit [facility] [address] [place] [address] Viola Jackson MD [address] [place] [address] Health Maintenance Due Date Last Done Comments CT Colonography 1955 Colonoscopy 1955 FIT 1955 FOBT 1955 Sigmoidoscopy 1955 Hepatitis C Screening 1973 RSV Patients and Patients Aged 60 years or older (1 - Risk 60-74 years 1-dose series) 2015 COVID-19 Vaccine ( season) 2024 10/15/2023, 11/07/2022, 11/18/2021, Additional history exists Zoster Vaccines (3 of 3) 12/20/2024 10/25/2024, 04/23 SDOH Screening 06/20/2025 06/20/2024 Alcohol/Substance Use Screening 06/30/2025 06/30/2024 Depression Screening 06/30/2025 06/30/2024, 06/30/20 Colorectal Cancer Screening 09/21/2025 FIT DNA/Cologuard 09/21/2025 09/21/2022 Diabetes: Hemoglobin A1C 01/09/2026 025, 09/21/2023, 04/21/2022, Additional history exists Tobacco Screening 01/18/2026 01/18/2025 Mammogram 03/14/2026 03/29/2025, 02/21, 03/08/2024, Additional history exists DTaP/Tdap/Td Vaccines (2 - Td or Tdap) [...] Procedure Name Priority Date/Time Associated Diagnosis Comments BI US BREAST LIMITED LEFT Routine 03/29/2025 11:00 AM EDT BI MAMMOGRAM SCREENING TOMOSYNTHESIS BILATERAL Routine 03/14/2025 10:30 AM EDT HEMOGLOBIN A1C Routine 01/09/2025 9:20 AM EST Essential hypertension TSH W/REFLEX TO FT4 Routine 01/09/2025 9 :20 AM EST Essential hypertension LIPID PANEL WITH REFLEX TO DIRECT LDL Routine 01/09/2025 9:20 AM EST Essential hypertension COMPREHENSIVE METABOLIC PANEL Routine 01/09/2025 9:20 AM EST Essential hypertension CBC WITH AUTO DIFFERENTIAL Routine 01/09/2025 9:20 AM EST Essential hypertension HPV MRNA E6/E7 REFLEX TO HPV 16, 18/45 Routine 07/05/2023 12:00 AM EDT PAP SMEAR Routine 07/05/2023 from Last 3 Months or Most Recently Relevant to Health Maintenance Results * BI US Breast Limited Left (03/29/2025 11:00 AM EDT) Anatomical Region Laterality Modality Breast Left Ultrasound 03/29/2025 11:0 0 AM EDT Narrative 03/29/2025 12:13 PM EDT ? [facility] [place] ? [address] ?[place] [address] ? Ultrasound Report ? Signed ? Patient: Lambert,Alice ?MR#: [id number] ?? 3 ? : 1955 ?Acct:[id number] ? Age/Sex: 69 / F ?ADM Date: 05/08/25 ? Loc: HO.MAMMO ? Attending Dr: Viola So MD ? Ordering Physician: Viola Jackson MD ?? Date of Service: 03/29/25 ?? Procedure(s): US breast LT limited mamm only ?? Accession Number(s): [id number] ? cc: Viola Jackson MD ? EXAMINATION: ?? US DIAGNOSTIC ULTRASOUND BREAST, LEFT ? CLINICAL INFORMATION: ? Left skin lesion lower inner quadrant.. ? COMPARISON: ?? Comparison is made with relevant prior imaging. ? TECHNIQUE: ?? Ultrasound of the breast is performed with real-time albarado scale imaging ?? and color Doppler. ? FINDINGS: ?? Targeted color Doppler ultrasound scanning over the patient's new left ?? skin lesion 7:00 6 cm from nipple demonstrates a hypoechoic intradermal ?? sebaceous cyst/epidermal inclusion cyst measuring 5 x 5 x 1 mm. ?? Results are discussed with the patient at time of visit. ? US/US breast LT limited mamm only ?? IMPRESSION: ?? Intradermal Sebaceous cyst/epidermal inclusion cyst. Benign. Recommend ?? clinical follow-up. ? ASSESSMENT: ? BI-RADS 2: Benign ? RECOMMENDATION: ?? 1. Patient should be managed based on the clinical impression. ? Decision to proceed with biopsy should be based on clinical grounds and ?? degree of clinical concern. ? 2. Otherwise, routine annual screening mammography. ? This patient's information was entered into a reminder system with a ?? target due date for their next mammogram. ? Electronically signed by: ??Tash Magallon DO ??03/29/2025 12:10 PM EDT ? Dictated By: ?Tash Magallon DO ? Signed By: ?<Electronically signed by Tash Magallon, DO in OV> ? 03/29/25 1210 ? DD/ 1100 ? TD/TT: 03/29/25 1135 ? Textile Engraver: ? Procedure Note Cameron Garza - 03/29/2025 [facility] [address] [place] [address] [place] [address] Ultrasound Report Signed Patient: Colten VerdinJosephHung#: [id number] 3 : 6Acct:[id number] Age/Sex: 69 / FADM Date: 03/29/25 Loc: HO.MAMMO Attending Dr: Viola So MD Ordering Physician: Viola Jackson MD Date of Service: 03/29/25 Procedure(s): US breast LT limited mamm only Accession Number(s): [id number] cc: Viola Jackson MD EXAMINATION: US DIAGNOSTIC ULTRASOUND BREAST, LEFT CLINICAL INFORMATION: Left skin lesion lower inner quadrant.. COMPARISON: Comparison is made with relevant prior imaging. TECHNIQUE: Ultrasound of the breast is performed with real-time albarado scale imaging and color Doppler. FINDINGS: Targeted color Doppler ultrasound scanning over the patient's new left skin lesion 7:00 6 cm from nipple demonstrates a hypoechoic intradermal sebaceous cyst/epidermal inclusion cyst measuring 5 x 5 x 1 mm. Results are discussed with the patient at time of visit. US/US breast LT limited mamm only IMPRESSION: Intradermal Sebaceous cyst/epidermal inclusion cyst. Benign. Recommend clinical follow-up. ASSESSMENT: BI-RADS 2: Benign RECOMMENDATION: 1. Patient should be managed based on the clinical impression. Decision to proceed with biopsy should be based on clinical grounds and degree of clinical concern. 2. Otherwise, routine annual screening mammography. This patient's information was entered into a reminder system with a target due date for their next mammogram. Electronically signed by: Tash Magallon DO 03/29/2025 12:10 PM EDT Dictated By: Tash Magallon DO Signed By: <Electronically signed by Tash Magallon DO in OV> 03/29/25 1210 DD/ 1100 TD/TT: 03/29/25 1135 Textile Engraver: us Viola So MD IMG US PROCEDURES David kassi Result - Final * BI Mammogram Screening Tomosynthesis Bilateral (03/14/2025 10:30 AM EDT) Anatomical Region Laterality Modality Breast Bilateral Mammography 03/14/2025 10:3 0 AM EDT Narrative 03/16/2025 9:21 AM EDT ? [place] [facility] ? [address] ?[place] [address] ?[phone] ? Mammography Report ? Signed ? Patient: Lambert,Alice ?MR#: [id number] ?? 3 ? : 1955 ?Acct:[id number] ? Age/Sex: 69 / F ?ADM Date: 03/14/25 ? Loc: HO.MAMMO ? Attending Dr: Viola So MD ? Ordering Physician: Viola Jackson MD ?Results: 0Incomplete: Needs Additional Imaging ?? Evaluation ? Date of Service: 03/14/25 ?Follow Up: Additional Imagi ?? ng ? Procedure(s): MM tomosynthesis screening BI ?? Accession Number(s): [id number] ? cc: Viola Jackson MD ? EXAMINATION: ?? MM SCREENING DIGITAL BREAST TOMOSYNTHESIS, BILATERAL ? CLINICAL INFORMATION: ? Screening. Asymptomatic. ??New left lesion marked with mole marker ?? noticed a few days ago in the shower. ? COMPARISON: ?? Mammography: Comparison is made with available priors ? TECHNIQUE: ?? Digital breast mammography with tomosynthesis is performed in both the ?? craniocaudal and mediolateral oblique views along with computer-aided ?? detection (CAD). ? FINDINGS: ?? The breasts are heterogeneously dense, which may obscure small masses ?? (ACR BI-RADS breast composition Category c). ?? Left: ?? Mole marker in the lower inner left breast from a new lesion the ?? patient noticed. ?? No suspicious masses calcifications or other abnormal findings. ? Right: ?? There are no significant masses, abnormal calcifications, or other ?? abnormalities. ? MM/MM tomosynthesis screening BI ?? IMPRESSION: ?? Additional imaging is recommended ? ASSESSMENT: ? BI-RADS BI-RADS 0 - Incomplete: Needs additional Imaging. ? RECOMMENDATION: ?? 1. Additional views of the left breast ultrasound. ?? 2. Radiology department staff will contact the patient for additional ?? imaging. ? Additional Imaging required ? This examination should not preclude the clinical evaluation of a ?? suspicious palpable abnormality. ? This patient's information was entered into a reminder system with a ?? target due date for their next mammogram. ? Electronically signed by: ??Tash Magallon DO ??03/16/2025 09:19 AM EDT ? Dictated By: ?Tash Magallon DO ? Signed By: ?<Electronically signed by Tash Magallon, DO in OV> ? 03/16/25 0919 ? DD/ 1030 ? TD/TT: 03/14/25 1058 ? Textile Engraver: ? Procedure Note Cameron Garza - 03/16/2025 [facility] [address] [place] [address] [place] [address] Mammography Report Signed Patient: Colten VerdinnMHung#: [id number] 3 : 6Acct:[id number] Age/Sex: 69 / FADM Date: 03/14/25 Loc: HO.MAMMO Attending Dr: Viola So MD Ordering Physician: Voila Jackson MD Results: 0Incomplete: Needs Additional Imaging Evaluation Date of Service: 03/14/25Follow Up: Additional Imagi ng Procedure(s): MM tomosynthesis screening BI Accession Number(s): [id number] cc: Viola Jackson MD EXAMINATION: MM SCREENING DIGITAL BREAST TOMOSYNTHESIS, BILATERAL CLINICAL INFORMATION: Screening. Asymptomatic. New left lesion marked with mole marker noticed a few days ago in the shower. COMPARISON: Mammography: Comparison is made with available priors TECHNIQUE: Digital breast mammography with tomosynthesis is performed in both the craniocaudal and mediolateral oblique views along with computer-aided detection (CAD). FINDINGS: The breasts are heterogeneously dense, which may obscure small masses (ACR BI-RADS breast composition Category c). Left: Mole marker in the lower inner left breast from a new lesion the patient noticed. No suspicious masses calcifications or other abnormal findings. Right: There are no significant masses, abnormal calcifications, or other abnormalities. MM/MM tomosynthesis screening BI IMPRESSION: Additional imaging is recommended ASSESSMENT: BI-RADS BI-RADS 0 - Incomplete: Needs additional Imaging. RECOMMENDATION: 1. Additional views of the left breast ultrasound. 2. Radiology department staff will contact the patient for additional imaging. Additional Imaging required This examination should not preclude the clinical evaluation of a suspicious palpable abnormality. This patient's information was entered into a reminder system with a target due date for their next mammogram. Electronically signed by: Tash Magallon DO 03/16/2025 09:19 AM EDT Dictated By: Tash Magallon DO Signed By: <Electronically signed by Tash Magallon DO in OV> 03/16/25 0919 DD/ 1030 TD/TT: 03/14/25 1058 Textile Engraver: us Voila So MD IMG BI PROCEDURES David kassi Result - Final * TSH with Reflex to Free T4 (01/09/2025 9:20 AM EST) TSH reflex Free T4 1.44 0.32 - 4.0 uIU/mL [facility] Blood 01/09/2025 9:20 AM EST 01/09/2025 11:00 AM EST us Viola So MD LAB BLOOD ORDERABLES Final Result Performing Organization Address [facility] Co de Phone Number [facility] [address] [place] [address] [phone] * Lipid Panel with Reflex to Direct LDL (01/09/2025 9:20 AM EST) Triglycerides 113 <150 mg/dL [facility] Comment:Desirable Triglyceri de: less than 150 mg/dLBorderline High Triglyceride 150-199 mg/dLHigh Triglyceride: 200-499 mg/dLVery High Triglyceride: greater than or equal to 5OO mg/dL Cholesterol 132 <200 mg/dL [facility] Comment:Desirable Cholestero l: less than 200 mg/dLBorderline High Cholesterol: 200-239 mg/dLHigh Cholesterol: greater than 239 mg/dL LDL Cholesterol Calculated 54 <100 mg/dL [facility] Comment:Desirable LDL: less than 100 mg/dLNear Optimal/Above Optimal LDL: 110- 129 mg/dLBorderline High LDL: 130-159 mg/dLHigh LDL: 160-189 mg/dLVery High LDL: greater than or equal to 190 mg/dL HDL Cholesterol 56 >40 mg/dL [facility] Comment:Desirable HDL: great er than 40 mg/dL Note: This HDL assay may give artificially low results in patients with liver disease. Blood 01/09/2025 9:20 AM EST 01/09/2025 11:00 AM EST us Viola So MD LAB BLOOD ORDERABLES Final Result Performing Organization Address [facility]/ZIP Co de Phone Number [facility] [address] [place] [address] [phone] * CBC auto differential (01/09/2025 9:20 AM EST) White Blood Count 7.1 4.8 - 10.8 X10*3/uL [facility] Red Blood Count 4.55 4.20 - 5.50 X10*6/uL [facility] Hemoglobin 12.8 12.0 - 16.0 g/dl [facility] Hematocrit 39.4 37.0 - 47.0 % [facility] Mean Corpuscular Volume 86.6 80.0 - 98.0 fL [facility] Mean Corpuscular Hemoglobin 28.1 27.0 - 33.0 pg [facility] Mean Corpuscular HGB Conc 32.5 31.0 - 35.0 g/dl [facility] Red Cell Distribution Width 13.2 11.0 - 16.0 % [facility] Platelet Count 241 160 - 400 X10*3/uL [facility] Mean Platelet Volume 9.6 9.4 - 12.3 fL [facility] Neutrophils Percent Auto 64.4 45 - 73 % [facility] Imm Gran Pct Auto 0.3 0.0 - 0.4 % [facility] Lymphocytes Percent Auto 26.0 20 - 40 % [facility] Monocytes Percent Auto 8.0 2 - 11 % [facility] Eosinophils Percent Auto 1.0 0 - 4 % [facility] Basophils Percent Auto 0.3 0 - 2 % [facility] NRBC Pct Auto 0.0 0.0 - 0.2 /100WBC [facility] Neutrophils Absolute Auto 4.6 2.0 - 8.3 x10*3/uL [facility] Imm Gran Abs Auto 0.02 0.00 - 0.03 X10*3/uL [facility] Lymphocytes Absolute Auto 1.9 1.2 - 4.9 X10*3/uL [facility] Monocytes Absolute Auto 0.6 0.1 - 1.2 X10*3/uL [facility] Eosinophils Absolute Auto 0.1 0.0 - 0.4 X10*3/uL [facility] Basophils Absolute Auto 0.0 0.0 - 0.2 X10*3/uL [facility] NRBC Abs Auto 0.000 0.0 - 0.012 X10*3/uL [facility] Blood Venous blood specimen / Unknown 01/09/2025 9:20 AM EST 01/09/2025 11:00 AM EST us Viola So MD LAB BLOOD ORDERABLES Final Result Performing Organization Address [facility] Co de Phone Number [facility] [address] [place] [phone] * Hemoglobin A1c (01/09/2025 9:20 AM EST) Hemoglobin A1c 5.8 <6.0 % [facility] Comment:Hemoglobin A1C Refer ence Range Adults: 4.8 - 6.0 % Non diabetic: < 6.0 % Goal: < 7.0 %Additional Action Suggested: > 8.0 %Note: Hemoglobin A1c results are invalid for patients with abnormal amounts of HbF. Blood transfusions may impact the HbA1c concentration in the patient sample. Estimated Average Glucose 120 mg/dL [facility] Comment:eAG = Estimated ave rage glucose which is %A1C expressed asaverage glucose, using the formula of the L6Z-OsmvbxbXtropgy Glucose study (ADAG), Diabetes Care, Vol.31,#8,Jun. 2007 Blood Venous blood specimen / Unknown 01/09/2025 9:20 AM EST 01/09/2025 11:00 AM EST us Viola So MD LAB BLOOD ORDERABLES Final Result Performing Organization Address [facility] Co de Phone Number [facility] [address] [place] [phone] * (ABNORMAL) Comprehensive Metabolic Panel (01/09/2025 9:20 AM EST) Sodium 144 135 - 145 mmol/L [facility] Potassium 3.5 3.3 - 5.1 mmol/L [facility] Chloride 103 96 - 108 mmol/L [facility] Carbon Dioxide 27 22 - 29 mmol/L [facility] Anion Gap 18 12 - 20 [facility] Urea Nitrogen (BUN) 13 9 - 16 mg/dL [facility] Creatinine, Serum 0.70 0.5 - 1.4 mg/dL [facility] Estimated Glomerular Filt Rate >60 [facility] Comment:Chronic Kidney Disea se: Estimated GFR < 60 mL/min/1.36q6Aknfkk Kidney Disease: Estimated GFR < 15 mL/min/1.73m2 Glucose 102 60 - 115 mg/dL [facility] Calcium 10.0 8.4 - 10.2 mg/dL [facility] Bilirubin, Total 0.5 0.0 - 1.0 mg/dL [facility] Aspartate Amino Transferase 30 5 - 31 U/L [facility] Alanine Aminotransferase 21 0 - 31 U/L [facility] Total Protein 8.3(H) 6.5 - 8.0 g/dL [facility] Albumin Level 4.7 3.5 - 5.0 g/dL [facility] Alkaline Phosphatase 101 39 - 117 U/L [facility] Blood Venous blood specimen / Unknown 01/09/2025 9:20 AM EST 01/09/2025 11:00 AM EST Viola So MD LAB BLOOD ORDERABLES Final Result [facility] [address] [place] [phone] * HPV mRNA E6/E7 w/Reflex to HPV Genotypes 16, 18/45 (07/05/2023 12:00 AM EDT) HPV nRNA E6/E7 Not Detected Not Detected [facility] Comment:Methodology: Transcr iption-Mediated AmplificationThis assay detects E6/E7 viral messenger RNA (mRNA) from 14high-risk HPV types (16,18,31,33,35,39,45,51,52,56,58,59,66,68).Cervical sources are required for HPV testing.If a vaginal source from a patient who has had atotal hysterectomy with removal of cervix wassubmitted, please contact the testing laboratoryfor alternative testing options.For additional information, please refer tohttp://education.[employer]/faq/ZDK089e5(This link if provided for information/educational purposes only.)THIS TEST WAS PERFORMED AT:[facility] [place] [phone] LOPEZ MD HPV mRNA E6/E7 TNP [facility] HPV 16 RNA TNP [facility] HPV 18/45 RNA TNP [facility] 07/05/2023 07/06/2023 10: 20 AM EDT Laci Hemphill CNM LAB CYTOLOGY ORDERABLES F inal Result [facility] [address] [place] [address] [phone] * Pap Smear (07/05/2023) 07/05/2023 07/06/2023 10: 20 AM EDT Narrative [facility] - 07/20/2023 3:36 PM EDT ----- ------- Name: Alice Verdin ?Age/Sex: 67/F ? : 1955 Unit#: [id number] ?? Attend Dr: LACI HEMPHILL CNM ?Re07/05/23 ?Status: DEP REF ? Location: HO.HHCLNP ? Disch: ? ----- ------- SPEC : [id number] ?RECD: 07/06/23-0 ? STATUS: ??SOUT ? REQ NUM: [id number] ? SAMEER: 07/05/23- ? SUBM DR: LACI HEMPHILL CNM ? ENTERED: ??07/06/23-1053 ?SP TYPE: Pap Smr ?OTHR : ? ORDERED: ??Pap Smear ? Interpretation ?? Satisfactory for evaluation. ?? Negative for intraepithelial lesion or malignancy. ?HPV mRNA E6/E7: ?NOT DETECTED ? This assay detects E6/E7 viral messenger RNA (mRNA) from 14 high-risk HPV types (16, 18, ?? 31, 33, 35, 39, 45, 51, 52, 56, 58, 59, 66, 68) ?? HPV testing performed by [facility], [place], [place]. ??See reference laboratory ?? pion of the EMR for entire report. ?Clinical Information LMP:Unknown date Previous PAP test:2019, ASC HPV neg ? Material Received ?? ThinPrep-Vaginal/Cervical ----- ------- Signed (signature on file) Rina Hester MD 07/20/23 1536 ? ----- ------- ? END OF REPORT ? us Laci Hemphill [facility] LAB CYTOLOGY ORDERABLES F inal Result [facility] [address] [place] [phone] from Last 3 Months or Most Recently Relevant to Health Maintenance Insurance [facility] [employer] (HMO D-SNP) NAYLA LAGOS [id number] Care Teams Crime Data Specialist Relationship Specialty Start Date End Date Viola Jackson MD [address] [place] [phone] PCP - General Family Medicine 08/10/18
--- OUTSIDE RECORDS SUMMARY | 2025-03-29 12:28 | XMS_ITS | Encounter Summary ---
Author Organization [employer] Address [address] [facility] [address]t [place] [address] Care Team Providers Care Brick Shader Name Role Phone iVola Jackson MD Primary Care Provide r Encounter Details Date Type Department Care Team (Latest Contact Info) Description 05/23/[address] [facility] CONVERSIONS Dental, Provider, DDS Social History [...] Description 04/18/2025 11:15 AM EDT Office Visit [facility] [address] [place] [phone] Viola Jackson MD [address] [place] [address] documented as of this encounter Visit Diagnoses Not on filedocumented in this encounter Care Teams Brick Shader Relationship Specialty Start Date End Date Viola Jackson MD [address] [place] [address] [phone] PCP - General Family Medicine 08/10/18 documented as of this encounter
== END 2025-03-29 10:56 | disposition home or self-care (01) ==
LOC: HO.MAMMO 10:55
PROVIDERS: PCP Internal Medicine; Visit Provider Internal Medicine
DX: N63.24 Unspecified lump in the left breast, lower inner quadrant (principal)
CPT/HCPCS: 76642

== ENCOUNTER → 2025-03-29 11:00 | Outpatient (BNV) | payer OTHER, SELFPAY | PROVIDERS: PCP Internal Medicine; Visit Provider Internal Medicine | DX: L72.3 Sebaceous cyst (principal) | CPT/HCPCS: 76642 ==